=== PATIENT | male | born 1995 | race Caucasian/White ===

== ENCOUNTER 2020-06-12 21:16 | Emergency (ER) | payer OTHER ==
[~2020-06-12] VITALS: Ht 177.8 cm; Wt 81.7 kg
[2020-06-12] MEDS ORDERED: ADVIL200 M1 PO (21:25)
[2020-06-12] MEDS ORDERED: NORCO 5-325 TA1 EAC2 PO (22:52)
[2020-06-12 23:00] VITALS: BP 154/102
== END 2020-06-12 23:10 | disposition home or self-care (01) ==
LOC: ER 21:16
DX: S43.085A Other dislocation of left shoulder joint, initial encounter (principal); Z88.5 Allergy status to narcotic agent; X50.1XXA Overexertion from prolonged static or awkward postures, initial encounter; Y93.64 Activity, baseball; Y92.89 Other specified places as the place of occurrence of the external cause; Y99.9 Unspecified external cause status